=== PATIENT | male | born 1945 | race Hispanic/Latino ===

== ENCOUNTER 2017-07-16 10:41 | Day surgery (SDC) | payer MEDICARE, OTHER ==
[~2017-07-16 10:41] MED LIST: ANCEF/STERILE WATER 2 GM/20 ML 2 GM/20 ML SYRINGE IV NR; NACL 0.9% 1000 ML 1,000 ML IV SCH
[2017-07-16 11:30] LABS: Basophils % (Auto) 1.4 % (0.0-1.8); Eosinophils % (Auto) 2.4 % (0.0-4.3); Hematocrit 36.5 % (35.5-45.6); Hemoglobin 12.4 gm/dl (11.8-15.2); Mean Corpuscular HGB Conc 34 % (32-34); Mean Corpuscular Hemoglobin 33 pg (28-32); Mean Corpuscular Volume 96 fl (84-94); Red Cell Distribution Width 16.7 % (13.2-15.2); White Blood Count 6.4 K/mm3 (4.5-11.0)
[2017-07-16 11:33] LABS: Platelet Count 81 K/mm3 (140-440)
[2017-07-16 11:46] LABS: BUN/Creatinine Ratio 5.33; Calcium 9.5 mg/dL (8.4-10.2); Chloride 95.2 mmol/L (98-107); INR 1.83 (0.87-1.13); Partial Thromboplastin Time 31.5 Sec. (24.2-36.6)
[2017-07-16] MEDS ORDERED: HEPARIN/NS 5000 UNIT/500ML(CATH LAB) 1,000 ML IR ONE (14:25)
[2017-07-16] MEDS ORDERED: HEPARIN 10,000 UNITS/10 ML ONE (14:25)
[2017-07-16] MEDS ORDERED: XYLOCAINE 2% INFILTRATI ONE (14:25)
[2017-07-16] MEDS ORDERED: SUBLIMAZE ONE (15:03)
[2017-07-16] MEDS ORDERED: VERSED ONE (15:03)
[2017-07-16] MEDS ORDERED: ANCEF/STERILE WATER 2 GM/20 ML 2 GM/20 ML SYRINGE IV ONE (15:04)
[2017-07-16] MEDS ORDERED: NACL 0.9% 250ML 250 ML ONE (15:04)
--- NOTE | 2017-07-16 16:49 | Operative Report ---
Operative Report Operative Report: Date of procedure: 07/16/2017 Pre-operative diagnosis: Mechanical complication hemodialysis access fistula right arm Post-operative diagnosis: Same Procedure name(s): AV fistulogram with angioplasty peripheral dialysis circuit right upper extremity, percutaneous angioplasty right brachiocephalic and superior vena cava vein of the central dialysis circulation Surgeon: Travis Silverman MD Business Trainer: None Anesthesia: Moderate sedation EBL: Minimal Specimen(s): None Complications: None Findings: Transposed basilic AV fistula with large pseudoaneurysm in the arterial and venous cannulation sites stenosis of the fistula just beyond the venous cannulation site at the transition zone to the brachial vein upper arm, and the central venous circulation at the confluence of the right subclavian, right internal jugular, brachiocephalic, and SVC. Procedure: Patient in the supine position after adequate levels of conscious sedation was obtained the right arm was extended the entire extremity was prepped and draped using standard sterile technique. The AV fistula was then accessed using micropuncture technique and a microcatheter was advanced in an antegrade fashion towards the venous outflow. Contrast was injected which delineated the AV fistula showing it to be stenotic and several areas with a large contiguous pseudoaneurysm involving both the arterial and venous access sites. Just proximal in the arm to the venous access site there was a significant 70-80% stenosis. The fistula was of normal caliber above this area but somewhat irregular for an additional 3-4 cm .There was another high- grade stenotic lesion clearly 70% at the transition zone to the brachial vein. In addition there appeared to be some collateral formation suggesting a more central stenosis. Was confirmed by passing a guidewire and a vertebral catheter and injecting contrast in the subclavian vein. This point I made the decision to intervene and heparinized the patient. I then upsized to a 7 Maltese introducer and advanced a guidewire into the central circulation. A 12 x 4 high pressure angioplasty balloon was then brought across the lesion central and ultimately insufflated to 16 sh[place]ana. This resulted in an improvement of the stenotic lesion. Both of the lesions within the peripheral dialysis circuit were treated with 8 x 4 balloon. Reflux examination did not reveal inflow stenosis. At this point the procedure was terminated by removal of the balloon and guidewire. The sheath was removed through a pursestring chromic suture . Patient tolerated the procedure well and was returned to the recovery area in stable condition. At this point I had elected not to use a cutting balloon or a drug coated balloon because based on his anatomy was not clear that this access would remain patent for the long-term. Surgical options include revision/reduction of the pseudoaneurysmal areas but this requires a permacath, creation of a new access preferably fistula in his contralateral arm and letting both run until the new fistula is mature and the old fistula can be abandoned, converting the existing fistula to an AV graft with early access capabilities, or continuing to use the current access and planning repeat angioplasty. Patient will benefit from vein sizing in his contralateral arm before I make my final recommendation.
--- NOTE | 2017-07-16 16:54 | Short Stay Summary ---
Short Stay Documentation Date of service: 07/16/17 Narrative H&P: Admitted to the [facility] for outpatient fissure gram and possible angioplasty secondary to mechanical complications of his hemodialysis fistula - History H&P: obtained from office - Allergies and Medications Current Medications: Allergies No Known Allergies Allergy (Unverified 07/16/17 10:41) Home Medications Medication Instructions Recorded Confirmed Last Taken Type Allopurinol [Zyloprim] 100 mg PO DAILY 07/16/17 07/16/17 07/15/17 History 100mg Amiodarone [Cordarone 200 MG TAB] 200 mg PO DAILY 07/16/17 07/16/17 07/15/17 History 200mg Docusate Sodium [Stool Softener] 1 tab PO Q48H 07/16/17 07/16/17 07/09/17 History 1 cap Metoprolol [Lopressor TAB] 25 mg PO BID 07/16/17 07/16/17 07/15/17 History 25mg Pravastatin Sodium [Pravastatin] 40 mg PO HS 07/16/17 07/16/17 07/15/17 History 40mg Saxagliptin HCl [Onglyza] 2.5 mg PO DAILY 07/16/17 07/16/17 07/15/17 History 2.5mg Sucroferric Oxyhydroxide [Velphoro] 3 tab PO TIDWM 07/16/17 07/16/17 07/15/17 History 3 tab Vit B Cplx #11/FA/C/Biot/Zn Ox 1 tab PO DAILY 07/16/17 07/16/17 07/15/17 History [Dialyvite with Zinc Tablet] 1 tab Warfarin [Coumadin] 5 mg PO DAILY 07/16/17 07/16/17 07/15/17 History 5mg Active Medications Cefazolin Sodium (Ancef/Sterile Water 2 Gm/20 Ml) 2 gm in 20 mls @ 80 mls/hr IV PREOP NR PRN Reason: Protocol Stop: 07/16/17 23:59 Sodium Chloride (Nacl 0.9% 1000 Ml) 1,000 mls @ 42 mls/hr IV DIRECT MADDY - Brief post op/procedure progress note Date of procedure: 07/16/17 Pre-op diagnosis: mechanial complicatons avf Post-op diagnosis: same Procedure: Date of procedure: 07/16/2017 Pre-operative diagnosis: Mechanical complication hemodialysis access fistula right arm Post-operative diagnosis: Same Procedure name(s): AV fistulogram with angioplasty peripheral dialysis circuit right upper extremity, percutaneous angioplasty right brachiocephalic and superior vena cava vein of the central dialysis circulation Surgeon: Travis Silverman MD Filling Machine Tender: None Anesthesia: Moderate sedation EBL: Minimal Specimen(s): None Complications: None Findings: Transposed basilic AV fistula with large pseudoaneurysm in the arterial and venous cannulation sites stenosis of the fistula just beyond the venous cannulation site at the transition zone to the brachial vein upper arm, and the central venous circulation at the confluence of the right subclavian, right internal jugular, brachiocephalic, and SVC. Procedure: Patient in the supine position after adequate levels of conscious sedation was obtained the right arm was extended the entire extremity was prepped and draped using standard sterile technique. The AV fistula was then accessed using micropuncture technique and a microcatheter was advanced in an antegrade fashion towards the venous outflow. Contrast was injected which delineated the AV fistula showing it to be stenotic and several areas with a large contiguous pseudoaneurysm involving both the arterial and venous access sites. Just proximal in the arm to the venous access site there was a significant 70-80% stenosis. The fistula was of normal caliber above this area but somewhat irregular for an additional 3-4 cm .There was another high- grade stenotic lesion clearly 70% at the transition zone to the brachial vein. In addition there appeared to be some collateral formation suggesting a more central stenosis. Was confirmed by passing a guidewire and a vertebral catheter and injecting contrast in the subclavian vein. This point I made the decision to intervene and heparinized the patient. I then upsized to a 7 Japanese introducer and advanced a guidewire into the central circulation. A 12 x 4 high pressure angioplasty balloon was then brought across the lesion central and ultimately insufflated to 16 [place]. This resulted in an improvement of the stenotic lesion. Both of the lesions within the peripheral dialysis circuit were treated with 8 x 4 balloon. Reflux examination did not reveal inflow stenosis. At this point the procedure was terminated by removal of the balloon and guidewire. The sheath was removed through a pursestring chromic suture . Patient tolerated the procedure well and was returned to the recovery area in stable condition. At this point I had elected not to use a cutting balloon or a drug coated balloon because based on his anatomy was not clear that this access would remain patent for the long-term. Surgical options include revision/reduction of the pseudoaneurysmal areas but this requires a permacath, creation of a new access preferably fistula in his contralateral arm and letting both run until the new fistula is mature and the old fistula can be abandoned, converting the existing fistula to an AV graft with early access capabilities, or continuing to use the current access and planning repeat angioplasty. Patient will benefit from vein sizing in his contralateral arm before I make my final recommendation. Anesthesia: other (moderate sedation) Condition: stable - Disposition Condition at discharge: Stable Disposition: DC-01 TO HOME OR SELFCARE - Discharge Diagnoses (1) Mechanical breakdown of surgically created arteriovenous fistula Status: Acute Qualifiers: Encounter type: initial encounter Qualified Code(s): T82.510A - Breakdown ( mechanical) of surgically created arteriovenous fistula, initial encounter (2) Chronic kidney disease requiring chronic dialysis Status: Chronic Short Stay Discharge Plan Activity: advance as tolerated Weight Bearing Status: Weight Bear as Tolerated Diet: renal Wound: keep clean and dry Special Instructions: no heavy lifting Follow up with: TRAVIS SILVERMAN MD [Staff Physician] - 7 Days Forms: AVG Arteriogram D/CInstruction
[2017-07-16 17:19] VITALS: BP 153/87
== END 2017-07-16 17:30 | disposition home or self-care (01) ==
LOC: CATHLABREC 10:41
PROVIDERS: ATTEND Surgery Vascular Surgery
DX: T82.590A Other mechanical complication of surgically created arteriovenous fistula, initial encounter (principal); E11.22 Type 2 diabetes mellitus with diabetic chronic kidney disease; N18.6 End stage renal disease; M19.90 Unspecified osteoarthritis, unspecified site; E13.40 Other specified diabetes mellitus with diabetic neuropathy, unspecified; Z99.2 Dependence on renal dialysis; Z95.1 Presence of aortocoronary bypass graft; Z98.890 Other specified postprocedural states; Z87.891 Personal history of nicotine dependence; Z79.82 Long term (current) use of aspirin; Z79.899 Other long term (current) drug therapy; Z83.3 Family history of diabetes mellitus; Y83.2 Surgical operation with anastomosis, bypass or graft as the cause of abnormal reaction of the patient, or of later complication, without mention of misadventure at the time of the procedure
CPT/HCPCS: 36415; 36902; 80048; 85025; 85610; 85730; C1725; C1751; C1894; J0690; J1644; J2250; J3010; J7050; Q9967

== ENCOUNTER 2017-08-06 07:35 | Day surgery (SDC) | payer MEDICARE ==
[~2017-08-06 07:35] MED LIST changes: +HEPARIN 10,000 UNITS/10 ML ONE; +MARCAINE 0.5% INFILTRATI ONE; +NACL 0.9% 500 ML 500 ML ONE; +PROTAMINE SULFATE ONE; +SODIUM BICARBONATE ONE; +XYLOCAINE 1%/ EPI 1:100,000 INFILTRATI ONE
--- NOTE | 2017-08-06 08:48 | Anesthesia Consultation ---
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
--- NOTE | 2017-08-06 08:52 | Anesthesia Day of Surgery ---
Anesthesia Day of Surgery - Day of Surgery Patient Examined: Yes Patient H&P Reviewed: Yes Patient is NPO: Yes Beta Blockers: No (held per patient, "BP was too low" )
[2017-08-06 09:36] LABS: Basophils % (Auto) 1.2 % (0.0-1.8); Eosinophils % (Auto) 1.7 % (0.0-4.3); Hematocrit 36.2 % (35.5-45.6); Hemoglobin 12.7 gm/dl (11.8-15.2); Mean Corpuscular HGB Conc 35 % (32-34); Mean Corpuscular Hemoglobin 34 pg (28-32); Mean Corpuscular Volume 97 fl (84-94); Red Blood Count 3.73 M/mm3 (3.65-5.03); Red Cell Distribution Width 15.4 % (13.2-15.2); White Blood Count 6.5 K/mm3 (4.5-11.0)
[2017-08-06 09:38] LABS: Platelet Count 78 K/mm3 (140-440)
[2017-08-06] MEDS ORDERED: XYLOCAINE MPF 2% ONE (09:45)
[2017-08-06] MEDS ORDERED: SUBLIMAZE ONE (09:45)
[2017-08-06] MEDS ORDERED: DIPRIVAN 10 MG/ML IV ONE ×4 (09:45→12:04)
[2017-08-06] MEDS ORDERED: VERSED IV ONE (10:00)
[2017-08-06 10:08] LABS: Calcium 9.2 mg/dL (8.4-10.2); Chloride 95.5 mmol/L (98-107)
[2017-08-06] MEDS ORDERED: VERSED ONE (10:45)
[2017-08-06] MEDS ORDERED: ePHEDrine SULFATE ONE (10:52)
[2017-08-06] MEDS ORDERED: HEPARIN 10,000 UNITS/10 ML 2,000 UNIT in NACL 0.9% 500 ML 500 ML IR ONE (11:08)
[2017-08-06] MEDS ORDERED: AMIDATE IV ONE (11:10)
[2017-08-06] MEDS ORDERED: MARCAINE 0.5% INFILTRATI ONE (11:21)
[2017-08-06] MEDS ORDERED: SODIUM BICARBONATE IV ONE (11:21)
[2017-08-06] MEDS ORDERED: NACL 0.9% IR ONE (11:22)
[2017-08-06] MEDS ORDERED: XYLOCAINE 1%/ EPI 1:100,000 INFILTRATI ONE ×2 (11:22)
--- NOTE | 2017-08-06 12:51 | Operative Report ---
Operative Report Operative Report: Date of procedure: 08/06/2017 Pre-operative diagnosis: Mechanical malfunction of AV fistula, end-stage renal disease on hemodialysis Post-operative diagnosis: Same Procedure name(s): Creation of left arm brachial artery to basilic vein fistula via direct anastomosis Surgeon: Travis Silverman MD Right Of Way Appraiser: None Anesthesia: Local Mac EBL: Minimal Specimen(s): None Complications: None Findings: Good-quality basilic vein, large median cubital vein with deep line decorator, excellent thrill and bruit post anastomosis and new fistula, palpable radial pulse Procedure: Patient in the supine position with the left arm extended the entire extremity was then prepped and draped using standard sterile technique. Duplex probe was used to identify the basilic vein and the median cubital vein and its relationship to the brachial artery. These vessels were marked. A longitudinal incision was then made just below the antecubital fossa through anesthetized skin centered over the median cubital vein and brachial artery. The incision was deepened through the subcutaneous tissue and then the median cubital vein was mobilized for several centimeter. The deep perforating branch connecting the antecubital with the brachial and antebrachial vein was mobilized and divided distally. It was hydrodilated and felt to be an acceptable candidate for access. The incision was deepened and the fascia divided and the brachial artery was then mobilized for several centimeters and encircled using vessel loops. The vessel was then occluded and a longitudinal arteriotomy was then made. The vein was spatulated and an end-to-side anastomosis was then created between the vein and the artery using 6-0 Prolene suture in running technique. Prior to the completion of the suture line antegrade and retrograde flushing was performed. The suture line was then completed and flow was established retrograde into the fistula. Subsequently the outflow arterial track was through occluded and antegrade flow was established initially into the vein followed by release of the forearm. Patient tolerated declamping without difficulty. An excellent thrill and bruit was noted in the fistula. Hemostasis was adequate. The incision was then blocked using Marcaine 0.5% plain and then close using 3-0 Vicryl subcutaneous 4 -0 Monocryl subcuticular the skin was sealed with Dermabond. A good radial pulse was felt with an excellent thrill and bruit in the fistula. The patient was then returned to the supine position and fluffs to the recovery area in stable condition having tolerated the procedure well. Sponge and needle counts were correct.
--- NOTE | 2017-08-06 12:54 | Short Stay Summary ---
Short Stay Documentation Date of service: 08/06/17 Narrative H&P: Patient admitted to the operating room for outpatient creation of a left brachial basilic fistula - History H&P: obtained from office - Allergies and Medications Current Medications: Allergies No Known Allergies Allergy (Verified 08/01/17 16:09) Home Medications Medication Instructions Recorded Confirmed Last Taken Type Allopurinol [Zyloprim] 100 mg PO DAILY 07/16/17 08/01/17 08/05/17 History Amiodarone [Cordarone 200 MG TAB] 200 mg PO DAILY 07/16/17 08/01/17 08/05/17 History B Complex 11/Folic/C/Biot/Zinc 1 tab PO DAILY 07/16/17 08/01/17 08/05/17 History [Dialyvite with Zinc Tablet] Docusate Sodium [Stool Softener] 1 tab PO Q48H 07/16/17 08/01/17 08/05/17 History Metoprolol [Lopressor TAB] 12.5 mg PO BID 07/16/17 08/06/17 08/04/17 History Pravastatin Sodium [Pravastatin] 40 mg PO HS 07/16/17 08/01/17 08/05/17 History Saxagliptin HCl [Onglyza] 2.5 mg PO DAILY 07/16/17 08/01/17 08/05/17 History Sucroferric Oxyhydroxide [Velphoro] 3 tab PO TIDWM 07/16/17 08/01/17 08/05/17 History Warfarin [Coumadin] 5 mg PO DAILY 07/16/17 08/01/17 08/05/17 History Active Medications Cefazolin Sodium (Ancef/Sterile Water 2 Gm/20 Ml) 2 gm in 20 mls @ 80 mls/hr IV PREOP NR PRN Reason: Protocol Stop: 08/06/17 23:59 Sodium Chloride (Nacl 0.9% 1000 Ml) 1,000 mls @ 42 mls/hr IV DIRECT MADDY Last Admin: 08/06/17 09:20 Dose: 42 mls/hr - Brief post op/procedure progress note Date of procedure: 08/06/17 Procedure: Pre-operative diagnosis: Mechanical malfunction of AV fistula, end-stage renal disease on hemodialysis Post-operative diagnosis: Same Procedure name(s): Creation of left arm brachial artery to basilic vein fistula via direct anastomosis Surgeon: Travis Silverman MD Vehicle Body Sander: None Anesthesia: Local Mac EBL: Minimal Specimen(s): None Complications: None Findings: Good-quality basilic vein, large median cubital vein with deep train reservation clerk, excellent thrill and bruit post anastomosis and new fistula, palpable radial pulse Procedure: Patient in the supine position with the left arm extended the entire extremity was then prepped and draped using standard sterile technique. Duplex probe was used to identify the basilic vein and the median cubital vein and its relationship to the brachial artery. These vessels were marked. A longitudinal incision was then made just below the antecubital fossa through anesthetized skin centered over the median cubital vein and brachial artery. The incision was deepened through the subcutaneous tissue and then the median cubital vein was mobilized for several centimeter. The deep perforating branch connecting the antecubital with the brachial and antebrachial vein was mobilized and divided distally. It was hydrodilated and felt to be an acceptable candidate for access. The incision was deepened and the fascia divided and the brachial artery was then mobilized for several centimeters and encircled using vessel loops. The vessel was then occluded and a longitudinal arteriotomy was then made. The vein was spatulated and an end-to-side anastomosis was then created between the vein and the artery using 6-0 Prolene suture in running technique. Prior to the completion of the suture line antegrade and retrograde flushing was performed. The suture line was then completed and flow was established retrograde into the fistula. Subsequently the outflow arterial track was through occluded and antegrade flow was established initially into the vein followed by release of the forearm. Patient tolerated declamping without difficulty. An excellent thrill and bruit was noted in the fistula. Hemostasis was adequate. The incision was then blocked using Marcaine 0.5% plain and then close using 3-0 Vicryl subcutaneous 4 -0 Monocryl subcuticular the skin was sealed with Dermabond. A good radial pulse was felt with an excellent thrill and bruit in the fistula. The patient was then returned to the supine position and fluffs to the recovery area in stable condition having tolerated the procedure well. Sponge and needle counts were correct. - Hospital course Hospital course: Benign - Disposition Condition at discharge: Stable Disposition: DC- TO HOME OR SELFCARE - Discharge Diagnoses (1) Mechanical breakdown of surgically created arteriovenous fistula Status: Acute Qualifiers: Encounter type: initial encounter Qualified Code(s): T82.510A - Breakdown ( mechanical) of surgically created arteriovenous fistula, initial encounter (2) Chronic kidney disease requiring chronic dialysis Status: Chronic Short Stay Discharge Plan Activity: advance as tolerated Weight Bearing Status: Weight Bear as Tolerated Diet: renal Wound: open to air Special Instructions: no heavy lifting Follow up with: RENATE BUSH MD [Primary Care Provider] - 7 Days TRAVIS SILVERMAN MD [Staff Physician] - 14 Days Prescriptions: HYDROcodone/APAP 7.5-325 [[place] 7.5/325] 1 each PO Q6HR PRN #40 tablet PRN Reason: Pain
[2017-08-06] MEDS ORDERED: NORMODYNE IV ONE (14:00)
[2017-08-06 18:37] VITALS: BP 112/73
== END 2017-08-06 14:37 | disposition home or self-care (01) ==
LOC: OR 07:35
PROVIDERS: ATTEND Surgery Vascular Surgery
DX: T82.590A Other mechanical complication of surgically created arteriovenous fistula, initial encounter (principal); Y83.2 Surgical operation with anastomosis, bypass or graft as the cause of abnormal reaction of the patient, or of later complication, without mention of misadventure at the time of the procedure; I10 Essential (primary) hypertension; I25.10 Atherosclerotic heart disease of native coronary artery without angina pectoris; E11.22 Type 2 diabetes mellitus with diabetic chronic kidney disease; I12.0 Hypertensive chronic kidney disease with stage 5 chronic kidney disease or end stage renal disease; N18.6 End stage renal disease; Z85.828 Personal history of other malignant neoplasm of skin; Z95.1 Presence of aortocoronary bypass graft; Z95.2 Presence of prosthetic heart valve
CPT/HCPCS: 36415; 36819; 80048; 82962; 85025; J0690; J1644; J2250; J2704; J3010; J7030; J7040; J2720

== ENCOUNTER 2017-10-02 07:18 | Day surgery (SDC) | payer MEDICARE ==
[~2017-10-02 07:18] MED LIST changes: -HEPARIN 10,000 UNITS/10 ML ONE; -MARCAINE 0.5% INFILTRATI ONE; -NACL 0.9% 500 ML 500 ML ONE; -PROTAMINE SULFATE ONE; -SODIUM BICARBONATE ONE; -XYLOCAINE 1%/ EPI 1:100,000 INFILTRATI ONE
[2017-10-02] MEDS ORDERED: NACL 0.9% 500 ML 500 ML ONE (08:11)
[2017-10-02] MEDS ORDERED: MARCAINE 0.5% 30 ML INFILTRATI ONE (08:11)
[2017-10-02] MEDS ORDERED: PROTAMINE SULFATE ONE (08:11)
[2017-10-02] MEDS ORDERED: HEPARIN 10,000 UNITS/10 ML ONE (08:11)
[2017-10-02 09:19] LABS: Eosinophils % (Auto) 2.1 % (0.0-4.3); Hematocrit 36.2 % (35.5-45.6); Hemoglobin 12.4 gm/dl (11.8-15.2); Mean Corpuscular HGB Conc 34 % (32-34); Mean Corpuscular Hemoglobin 34 pg (28-32); Mean Corpuscular Volume 99 fl (84-94); Red Blood Count 3.67 M/mm3 (3.65-5.03); Red Cell Distribution Width 14.9 % (13.2-15.2); White Blood Count 6.2 K/mm3 (4.5-11.0)
--- NOTE | 2017-10-02 09:23 | Anesthesia Day of Surgery ---
Anesthesia Day of Surgery - Day of Surgery Patient Examined: Yes Patient H&P Reviewed: Yes Patient is NPO: Yes
--- NOTE | 2017-10-02 09:23 | Anesthesia Consultation ---
Anesthesia Consult and Med Hx Date of service: 10/02/17 - Airway Mallampati Class: Class II Intubation Access Assessment: Probably Good - Pre-Operative Health Status ASA Pre-Surgery Classification: ASA3 Proposed Anesthetic Plan: General - Pulmonary Hx Smoking: Yes Hx Sleep Apnea: Yes - Cardiovascular System Hx Hypertension: Yes Hx Coronary Artery Disease: Yes Hx Heart Attack/AMI: Yes (2012) Hx Cardia Arrhythmia: Yes (atrial fibrilation) Hx Valvular Heart Disease: Yes (Aortic valve replacement 04/2017) Hx Peripheral Vascular Disease: Yes - Central Nervous System Hx Back Pain: Yes Hx Psychiatric Problems: No - Endocrine Hx Renal Disease: Yes Hx End Stage Renal Disease: Yes Hx Non-Insulin Dependent Diabetes: Yes - Hematic Hx Anemia: Yes - Other Systems Hx Cancer: Yes (SKIN)
[2017-10-02 09:27] LABS: Platelet Count 86 K/mm3 (140-440)
[2017-10-02 09:35] LABS: Calcium 9.2 mg/dL (8.4-10.2); Chloride 94.2 mmol/L (98-107); Potassium 5.7 mmol/L (3.6-5.0)
[2017-10-02 09:41] LABS: INR 1.52 (0.87-1.13)
[2017-10-02] MEDS ORDERED: VERSED IV NR (10:00)
[2017-10-02] MEDS ORDERED: PEPCID IV NR (10:00)
[2017-10-02] MEDS ORDERED: DILAUDID IV SCH (10:00)
[2017-10-02] MEDS ORDERED: NEO SYNEPHRINE/NS Syringe(OR USE) IV ONE (10:00)
[2017-10-02] MEDS: DILAUDID IV NR ×2 (10:15→16:14)
[2017-10-02] MEDS ORDERED: SUBLIMAZE ONE (11:50)
[2017-10-02] MEDS ORDERED: ZOFRAN ONE (11:50)
[2017-10-02] MEDS ORDERED: DIPRIVAN 10 MG/ML IV ONE (11:50)
[2017-10-02] MEDS ORDERED: XYLOCAINE MPF 2% ONE (11:50)
[2017-10-02] MEDS ORDERED: ePHEDrine SULFATE ONE (12:35)
[2017-10-02] MEDS ORDERED: MARCAINE 0.5% INFILTRATI ONE ×2 (12:55)
[2017-10-02] MEDS ORDERED: HEPARIN 10,000 UNITS/10 ML 2,000 UNIT in NACL 0.9% 500 ML 500 ML IR ONE (12:55)
[2017-10-02] MEDS ORDERED: NACL 0.9% IR ONE (12:55)
[2017-10-02] MEDS ORDERED: DDAVP ONE (13:49)
[2017-10-02] MEDS ORDERED: DDAVP 20 MCG in NACL 0.9% 50 ML IV ONE (14:00)
--- NOTE | 2017-10-02 15:34 | Short Stay Summary ---
Short Stay Documentation Date of service: 10/02/17 Narrative H&P: Admitted to the operative suite for outpatient revision of a brachial basilic AV fistula left arm - History H&P: obtained from office - Allergies and Medications Current Medications: Allergies No Known Allergies Allergy (Verified 09/29/17 08:31) Home Medications Medication Instructions Recorded Confirmed Last Taken Type Allopurinol [Zyloprim] 100 mg PO DAILY 07/16/17 09/29/17 10/01/17 History Amiodarone [Cordarone 200 MG TAB] 200 mg PO DAILY 07/16/17 09/29/17 10/01/17 History B Complex 11/Folic/C/Biot/Zinc 1 tab PO DAILY 07/16/17 09/29/17 10/01/17 History [Dialyvite with Zinc Tablet] Docusate Sodium [Stool Softener] 1 tab PO Q48H 07/16/17 09/29/17 10/01/17 History Pravastatin Sodium [Pravastatin] 40 mg PO HS 07/16/17 09/29/17 10/01/17 History Saxagliptin HCl [Onglyza] 2.5 mg PO DAILY 07/16/17 09/29/17 10/01/17 History Sucroferric Oxyhydroxide [Velphoro] 3 tab PO TIDWM 07/16/17 09/29/17 10/01/17 History Warfarin [Coumadin] 5 mg PO DAILY 07/16/17 10/02/17 09/29/17 History HYDROcodone/APAP 7.5-325 [[place] 1 each PO Q6HR PRN #40 tablet 08/06/17 10/02/17 09/30/17 Rx 7.5/325] Active Medications Famotidine (Pepcid) 20 mg IV PREOP NR Stop: 10/02/17 23:59 Last Admin: 10/02/17 09:42 Dose: 20 mg Hydromorphone HCl (Dilaudid) 0.5 mg IV PREOP NR Stop: 10/02/17 23:59 Last Admin: 10/02/17 10:15 Dose: 0.5 mg Cefazolin Sodium (Ancef/Sterile Water 2 Gm/20 Ml) 2 gm in 20 mls @ 80 mls/hr IV PREOP NR PRN Reason: Protocol Stop: 10/02/17 21:00 Sodium Chloride (Nacl 0.9% 1000 Ml) 1,000 mls @ 42 mls/hr IV DIRECT MADDY Last Admin: 10/02/17 09:15 Dose: 42 mls/hr Midazolam HCl (Versed) 2 mg IV PREOP NR Stop: 10/02/17 23:59 Last Admin: 10/02/17 09:42 Dose: 2 mg - Brief post op/procedure progress note Date of procedure: 10/02/17 Procedure: Date of procedure: 10/02/2017 Pre-operative diagnosis: Mechanical complication AV fistula left arm, end-stage renal disease on dialysis Post-operative diagnosis: Same Procedure name(s): [ReVision of AV fistula left arm Surgeon: Travis Dwyer MD Integrated Marketing Specialist: None Anesthesia: General EBL: Minimal Specimen(s): None Complications: None Findings: Excellent size AV fistula. Good thrill and bruit at procedure termination Procedure: Patient in the supine position with the left arm extended the entire extremity is prepped and draped using sterile technique. The AV fistula was easily palpable at the antecubital fossa. I made a longitudinal incision overlying the basilic vein just above the antecubital fossa and extended sequentially to the axilla. The incision was deepened until the basilic vein was identified. Care was taken to identify and preserve the muscular cutaneous nerve throughout its entire length. Once the vein was mobilized to the level of the axilla it was encircled using vessel loops it was retracted upward and freed from its vascular base. Side branches were ligated using 3-0 silk ties. The vein was then divided after vascular control was obtained using the beveled technique. I then removed the upper portion of the vessel from underneath the nerves flushed and dilated it with saline. A curved Grace-Wick tunneling device was then used to create the subdermal tunnel. The fistula was then attached to the tunneler and pulled back into the antecubital fossa portion of the incision in a non-rotational fashion. The vessel was then reanastomosed end to end using 6-0 Prolene suture. Prior to completion of the suture line antegrade and retrograde flushing was performed. The suture line was then completed and flow was released back to the fistula. The fistula developed an excellent thrill and bruit. Hemostasis was excellent. The incision was then blocked with a cane. The incision was then closed using 3-0 Vicryl subcutaneous 4-0 Monocryl subcuticular. The skin was then sealed using Dermabond equivalent. Patient was then extubated returned to the recovery room in stable condition having tolerated the procedure well. Sponge and needle counts were correct. - Disposition Condition at discharge: Stable Disposition: DC-01 TO HOME OR SELFCARE - Discharge Diagnoses (1) Chronic kidney disease requiring chronic dialysis Status: Chronic (2) Mechanical breakdown of surgically created arteriovenous fistula Status: Chronic Qualifiers: Encounter type: subsequent encounter Qualified Code(s): T82.510D - Breakdown (mechanical) of surgically created arteriovenous fistula, subsequent encounter Short Stay Discharge Plan Activity: advance as tolerated Weight Bearing Status: Full Weight Bearing Diet: diabetic, renal Wound: keep clean and dry Special Instructions: no heavy lifting Follow up with: RENATE BUSH MD [Primary Care Provider] - 7 Days TRAVIS DWYER MD [Staff Physician] - 14 Days ILIANA STOKES MD [Staff Physician] - 7 Days CHINMAY SNOWDEN MD [Staff Physician] - 7 Days Prescriptions: HYDROcodone/APAP 7.5-325 [[place] 7.5-325 mg TAB] 1 each PO Q6HR PRN #30 tablet PRN Reason: Pain
[2017-10-02 16:22] VITALS: BP 147/84
--- NOTE | 2017-10-02 17:05 | Post Anesthesia Evaluation ---
- Post Anesthesia Evaluation Patient Participated: Yes Airway Patent: Yes Stable Respiratory Function: Yes Nausea/Vomiting: No Temp > 96.8F: Yes Pain Manageable: Yes Adequeate Hydration: Yes Anesthesia Complications: No
== END 2017-10-02 07:19 | disposition home or self-care (01) ==
LOC: OR 07:18
PROVIDERS: ATTEND Surgery Vascular Surgery
DX: T82.510A Breakdown (mechanical) of surgically created arteriovenous fistula, initial encounter (principal); E11.22 Type 2 diabetes mellitus with diabetic chronic kidney disease; I13.2 Hypertensive heart and chronic kidney disease with heart failure and with stage 5 chronic kidney disease, or end stage renal disease; N18.6 End stage renal disease; I50.9 Heart failure, unspecified; I25.2 Old myocardial infarction; I48.0 Paroxysmal atrial fibrillation; I70.213 Atherosclerosis of native arteries of extremities with intermittent claudication, bilateral legs; I25.10 Atherosclerotic heart disease of native coronary artery without angina pectoris; E11.40 Type 2 diabetes mellitus with diabetic neuropathy, unspecified; E11.51 Type 2 diabetes mellitus with diabetic peripheral angiopathy without gangrene; Z79.82 Long term (current) use of aspirin; Z79.899 Other long term (current) drug therapy; Z79.01 Long term (current) use of anticoagulants; Z79.84 Long term (current) use of oral hypoglycemic drugs; Z95.1 Presence of aortocoronary bypass graft; Z85.828 Personal history of other malignant neoplasm of skin; Z95.2 Presence of prosthetic heart valve; Y83.1 Surgical operation with implant of artificial internal device as the cause of abnormal reaction of the patient, or of later complication, without mention of misadventure at the time of the procedure
CPT/HCPCS: 36415; 36832; 80048; 82962; 84132; 85025; 85610; J0690; J1170; J1644; J2250; J2370; J2405; J2597; J2704; J3010; J7030; J7040; J2720

== ENCOUNTER 2017-12-11 05:46 | Day surgery (SDC) | payer MEDICARE ==
[2017-12-11] MEDS ORDERED: PEPCID PO NR (06:00)
[2017-12-11] MEDS ORDERED: ANCEF/STERILE WATER 2 GM/20 ML 2 GM/20 ML SYRINGE IV NR (06:00)
[2017-12-11] MEDS ORDERED: NACL 0.9% 1000 ML 1,000 ML IV SCH (06:00)
[2017-12-11] MEDS ORDERED: NACL BACTERIOSTATIC INFILTRATI ONE (06:50)
[2017-12-11 07:10] LABS: Basophils # (Auto) 0.1 K/mm3 (0.0-0.1); Eosinophils # (Auto) 0.2 K/mm3 (0.0-0.4); Eosinophils % (Auto) 3.6 % (0.0-4.3); Hematocrit 37.6 % (35.5-45.6); Hemoglobin 12.9 gm/dl (11.8-15.2); Lymphocytes # (Auto) 1.2 K/mm3 (1.2-5.4); Lymphocytes % (Auto) 18.6 % (13.4-35.0); Mean Corpuscular HGB Conc 34 % (32-34); Mean Corpuscular Hemoglobin 32 pg (28-32); Mean Corpuscular Volume 93 fl (84-94); Monocytes # (Auto) 0.5 K/mm3 (0.0-0.8); Monocytes % (Auto) 8.1 % (0.0-7.3); Red Blood Count 4.04 M/mm3 (3.65-5.03); Red Cell Distribution Width 14.7 % (13.2-15.2)
[2017-12-11 07:16] LABS: Calcium 9.2 mg/dL (8.4-10.2)
[2017-12-11] MEDS ORDERED: XYLOCAINE 1% 20 mL ONE (07:18)
[2017-12-11] MEDS ORDERED: MARCAINE 0.5% INFILTRATI ONE ×4 (07:18→12:06)
[2017-12-11 07:19] LABS: Platelet Count 86 K/mm3 (140-440)
[2017-12-11] MEDS ORDERED: HEPARIN 10,000 UNITS/10 ML ONE (07:19)
[2017-12-11] MEDS ORDERED: NACL 0.9% 500 ML 500 ML ONE (07:19)
--- NOTE | 2017-12-11 07:36 | Anesthesia Consultation ---
Anesthesia Consult and Med Hx Date of service: 12/11/17 - Airway Anesthetic Teeth Evaluation: Good (#8, 9 missing) ROM Head & Neck: Adequate Mental/Hyoid Distance: Adequate Mallampati Class: Class III Intubation Access Assessment: Possibly Difficult - Pre-Operative Health Status ASA Pre-Surgery Classification: ASA3 Proposed Anesthetic Plan: General - Pulmonary Hx Smoking: Yes Hx Sleep Apnea: Yes - Cardiovascular System Hx Hypertension: Yes Hx Coronary Artery Disease: Yes Hx Heart Attack/AMI: Yes (2012) Hx Cardia Arrhythmia: Yes (atrial fibrilation) Hx Valvular Heart Disease: Yes (Aortic valve replacement 04/2017) Hx Peripheral Vascular Disease: Yes - Central Nervous System Hx Back Pain: Yes Hx Psychiatric Problems: No - Endocrine Hx Renal Disease: Yes Hx End Stage Renal Disease: Yes Hx Non-Insulin Dependent Diabetes: Yes - Hematic Hx Anemia: Yes - Other Systems Hx Cancer: Yes (SKIN)
--- NOTE | 2017-12-11 07:40 | Anesthesia Day of Surgery ---
Anesthesia Day of Surgery - Day of Surgery Patient Examined: Yes Patient H&P Reviewed: Yes Patient is NPO: Yes
[2017-12-11] MEDS ORDERED: DILAUDID ONE (07:59)
[2017-12-11] MEDS ORDERED: DIPRIVAN 10 MG/ML IV ONE (08:00)
[2017-12-11] MEDS ORDERED: XYLOCAINE MPF 2% ONE (08:00)
[2017-12-11] MEDS ORDERED: VERSED IV NR (08:00)
[2017-12-11] MEDS ORDERED: AMIDATE IV ONE (08:14)
[2017-12-11] MEDS ORDERED: NEO SYNEPHRINE/NS Syringe(OR USE) IV ONE (08:38)
[2017-12-11] MEDS ORDERED: XYLOCAINE 1% 20 mL INFILTRATI ONE (08:55)
[2017-12-11] MEDS ORDERED: NACL 0.9% IR ONE (08:55)
[2017-12-11] MEDS ORDERED: HEPARIN 10,000 UNITS/10 ML 2,000 UNIT in NACL 0.9% 500 ML 500 ML IR ONE (08:55)
[2017-12-11] MEDS ORDERED: ZOFRAN ONE (10:03)
--- NOTE | 2017-12-11 10:32 | Post Operative Note ---
Pre-op diagnosis: ulcerated hemodialysis access right arm, ESRD on hemodialysis Post-op diagnosis: same Findings: Large pseudoaneurysmal AV fistula with erosion and ulceration to the midportion of the cannulation site was successfully excised and skin closed. Palpable radial pulse noted. Procedure: Excision of ulcerated hemodialysis access right arm Anesthesia: YOLIS Surgeon: SERAFIN DWYER Estimated blood loss: 50-100ml Pathology: list (ulcerated hemodialysis access fistula) Specimen disposition: to lab Condition: stable Disposition: same day
--- NOTE | 2017-12-11 10:36 | Short Stay Summary ---
Short Stay Documentation Date of service: 12/11/17 Narrative H&P: Admitted to the operating suite for outpatient removal of an ulcerated hemodialysis access in the right arm - History H&P: obtained from office - Allergies and Medications Current Medications: Allergies No Known Allergies Allergy (Verified 12/09/17 15:31) Home Medications Medication Instructions Recorded Confirmed Last Taken Type Allopurinol [Zyloprim] 100 mg PO DAILY 07/16/17 12/09/17 10/01/17 History Amiodarone [Cordarone 200 MG TAB] 200 mg PO DAILY 07/16/17 12/09/17 10/01/17 History B Complex 11/Folic/C/Biot/Zinc 1 tab PO DAILY 07/16/17 12/09/17 10/01/17 History [Dialyvite with Zinc Tablet] Docusate Sodium [Stool Softener] 1 tab PO Q48H 07/16/17 12/09/17 10/01/17 History Pravastatin Sodium [Pravastatin] 40 mg PO HS 07/16/17 12/09/17 10/01/17 History Saxagliptin HCl [Onglyza] 2.5 mg PO DAILY 07/16/17 12/09/17 10/01/17 History Sucroferric Oxyhydroxide [Velphoro] 3 tab PO TIDWM 07/16/17 12/09/17 10/01/17 History Warfarin [Coumadin] 5 mg PO DAILY 07/16/17 12/09/17 09/29/17 History HYDROcodone/APAP 7.5-325 [[place] 1 each PO Q6HR PRN #30 tablet 10/02/17 12/09/17 Unknown Rx 7.5-325 mg TAB] Active Medications Famotidine (Pepcid) 20 mg PO PREOP NR Stop: 12/11/17 21:00 Last Admin: 12/11/17 07:00 Dose: 20 mg Cefazolin Sodium (Ancef/Sterile Water 2 Gm/20 Ml) 2 gm in 20 mls @ 80 mls/hr IV PREOP NR PRN Reason: Protocol Stop: 12/11/17 23:59 Sodium Chloride (Nacl 0.9% 1000 Ml) 1,000 mls @ 42 mls/hr IV DIRECT MADDY Last Admin: 12/11/17 07:15 Dose: 42 mls/hr Midazolam HCl (Versed) 2 mg IV ONCE NR Stop: 12/11/17 21:00 Last Admin: 12/11/17 07:50 Dose: 2 mg - Brief post op/procedure progress note Date of procedure: 12/11/17 Pre-op diagnosis: ulcerated hemodialysis access right arm Post-op diagnosis: same Procedure: Excision of ulcerated hemodialysis access right arm Anesthesia: GETA Findings: Large pseudoaneurysmal access with ulcerated skin successfully excised. 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
--- NOTE | 2017-12-11 11:02 | Post Anesthesia Evaluation ---
- Post Anesthesia Evaluation Patient Participated: Yes Airway Patent: Yes Stable Respiratory Function: Yes Nausea/Vomiting: No Temp > 96.8F: Yes Pain Manageable: Yes Adequeate Hydration: Yes Anesthesia Complications: No Block Receding Appropriately: Not Applicable Patient on Ventilator: No
[2017-12-11] MEDS ORDERED: NORCO 7.5/325 PO SCH (12:00)
[2017-12-11 16:04] VITALS: BP 134/41
--- NOTE | 2017-12-11 16:19 | Operative Report ---
Operative Report Operative Report: Date of procedure:12/11/2017 Pre-operative diagnosis: Ulcerated hemodialysis access right upper arm, end- stage renal disease on dialysis Post-operative diagnosis: Same Procedure name(s): Excision of ulcerated hemodialysis access right upper extremity Surgeon: Travis Silverman MD Bath Tester: None Anesthesia: Gen./LMA EBL: 50-100 mL Specimen(s): Excised fistula with skin ulceration Complications: None Findings: Large pseudoaneurysmal AV fistula right upper extremity with ulceration through the skin skin fixation throughout. Successfully removed. Brachial and oversewn near the anastomosis Procedure: Patient in the supine position after adequate levels of general anesthesia was obtained using an LMA central right upper extremity was extended prepped in sterile technique. I marked an ellipse around the large pseudoaneurysm with ulcerated cannulation surfaces and anesthetized creating a large field block. The elliptical incision was then made excise the damaged skin was lengthened proximally and distally to accommodate the enlargement. Excision was then sharply taken down to the fistula surface and the entire fistula was then mobilized circumferentially. Side branches encountered were ligated. I then excised the remaining of the fistula and the redundant skin by first getting vascular control proximally and distally and then ligating the vessel. The proximal end of the access graft was mobilized to the anastomosis and there was oversewn using Prolene suture. Once the entire fistula was isolated was then amputated and removed from the surgical incision. Hemostasis was adequate. I then blocked the inside incision with Marcaine and then closed the subcutaneous tissue with 3-0 Vicryl running suture. The skin was then reapproximated using 4-0 Monocryl. The incision was then sealed with Dermabond. A soft compression wrap was applied for hemostasis. Patient was then returned to the recovery area in stable condition having tolerated the procedure well. Sponge and needle counts were correct.
== END 2017-12-11 12:05 | disposition home or self-care (01) ==
LOC: OR 05:46
PROVIDERS: ATTEND Surgery Vascular Surgery
DX: T82.898A Other specified complication of vascular prosthetic devices, implants and grafts, initial encounter (principal); I13.2 Hypertensive heart and chronic kidney disease with heart failure and with stage 5 chronic kidney disease, or end stage renal disease; E11.22 Type 2 diabetes mellitus with diabetic chronic kidney disease; N18.6 End stage renal disease; I50.40 Unspecified combined systolic (congestive) and diastolic (congestive) heart failure; E11.51 Type 2 diabetes mellitus with diabetic peripheral angiopathy without gangrene; E11.42 Type 2 diabetes mellitus with diabetic polyneuropathy; M19.90 Unspecified osteoarthritis, unspecified site; Z79.01 Long term (current) use of anticoagulants; Z79.899 Other long term (current) drug therapy; Y83.2 Surgical operation with anastomosis, bypass or graft as the cause of abnormal reaction of the patient, or of later complication, without mention of misadventure at the time of the procedure; Z98.890 Other specified postprocedural states
CPT/HCPCS: 36415; 37607; 80048; 82962; 84132; 85025; 88304; J0690; J1170; J1644; J2250; J2370; J2405; J2704; J7030; J7040

== ENCOUNTER 2019-04-15 11:37 | Day surgery (SDC) | payer MEDICARE ==
[2019-04-15 12:24] LABS: Basophils # (Auto) 0.1 K/mm3 (0.0-0.1); Basophils % (Auto) 1.2 % (0.0-1.8); Eosinophils # (Auto) 0.3 K/mm3 (0.0-0.4); Eosinophils % (Auto) 2.7 % (0.0-4.3); Hematocrit 36.7 % (35.5-45.6); Lymphocytes # (Auto) 1.3 K/mm3 (1.2-5.4); Lymphocytes % (Auto) 14.1 % (13.4-35.0); Mean Corpuscular HGB Conc 36 % (32-34); Mean Corpuscular Volume 94 fl (84-94); Monocytes # (Auto) 0.7 K/mm3 (0.0-0.8); Monocytes % (Auto) 8.1 % (0.0-7.3); Platelet Count 102 K/mm3 (140-440); Red Blood Count 3.92 M/mm3 (3.65-5.03)
[2019-04-15 12:36] LABS: INR 1.19 (0.87-1.13); Partial Thromboplastin Time 30.3 Sec. (24.2-36.6)
[2019-04-15 13:44] LABS: Calcium 9.2 mg/dL (8.4-10.2)
[2019-04-15] MEDS ORDERED: NACL 0.9% 500 ML 0 ML ONE (13:52)
[2019-04-15] MEDS ORDERED: HEPARIN/NS 5000 UNIT/500ML(CATH LAB) 1,500 ML IR ONE (13:52)
[2019-04-15] MEDS ORDERED: XYLOCAINE 2% INFILTRATI ONE (13:52)
[2019-04-15] MEDS ORDERED: ANCEF/STERILE WATER 2 GM/20 ML 2 GM/20 ML SYRINGE IV ONE (13:53)
[2019-04-15] MEDS: SUBLIMAZE ONE ×5 (14:28→16:14)
[2019-04-15] MEDS: VERSED ONE ×5 (14:28→16:13)
[2019-04-15] MEDS: HEPARIN 10,000 UNITS/10 ML ONE ×2 (14:40→15:09)
[2019-04-15] MEDS ORDERED: BENADRYL ONE (14:48)
[2019-04-15] MEDS ORDERED: NORCO 10/325 PO ONE (16:48)
[2019-04-15] MEDS ORDERED: NORCO 5/325 ONE (16:57)
--- NOTE | 2019-04-15 17:02 | Post Operative Note ---
Pre-op diagnosis: pvd with disabling claudication, Left leg, ESRD Post-op diagnosis: same Findings: calcified preocclusive stenosis left common femoral, SFA and occuluded above knee popliteal with two vessel runnoff below the knee. dramatically improved blood flow after successful shockwave angioplasty of the proximal two lesions, Procedure: left femoral-popliteal artery shockwave angioplasty, ultrasound guided access to right common femoral artery Anesthesia: other (moderate [id number]) Surgeon: SERAFIN DWYER Estimated blood loss: minimal Pathology: none Condition: stable Disposition: same day
--- NOTE | 2019-04-15 17:07 | Short Stay Summary ---
Short Stay Documentation Date of service: 04/15/19 - History H&P: obtained from office - Allergies and Medications Current Medications: Allergies No Known Allergies Allergy (Verified 12/09/17 15:31) Home Medications Medication Instructions Recorded Confirmed Last Taken Type Allopurinol [Zyloprim] 100 mg PO DAILY 07/16/17 04/15/19 04/14/19 History B Complex 11/Folic/C/Biot/Zinc 1 tab PO DAILY 07/16/17 04/15/19 04/14/19 History [Dialyvite with Zinc Tablet] Docusate Sodium [Stool Softener] 1 tab PO Q48H 07/16/17 04/15/19 10/01/17 History Saxagliptin HCl [Onglyza] 2.5 mg PO DAILY 07/16/17 04/15/19 04/15/19 History Sucroferric Oxyhydroxide(Nf) 3 tab PO TIDWM 07/16/17 04/15/19 04/14/19 History [Velphoro (Nf)] HYDROcodone/APAP 7.5-325 [[place] 1 each PO Q6HR PRN #30 tablet 12/11/17 04/15/19 04/15/19 04:00 Rx 7.5-325 mg TAB] Midodrine [Proamatine] 5 mg PO TID 04/15/19 04/15/19 04/15/19 09:00 History Active Medications Sodium Chloride (Nacl 0.9% 1000 Ml) 1,000 mls @ 42 mls/hr IV DIRECT MADDY Cefazolin Sodium (Ancef/Sterile Water 2 Gm/20 Ml) 2 gm in 20 mls @ 80 mls/hr IV PREOP NR; Protocol Stop: 04/15/19 23:59 Last Admin: 04/15/19 14:30 Dose: 20 mls Documented by: - Brief post op/procedure progress note Date of procedure: 04/15/19 Procedure: Pre-op diagnosis: pvd with disabling claudication, Left leg, ESRD Post-op diagnosis: same Findings: calcified preocclusive stenosis left common femoral, SFA and occuluded above knee popliteal with two vessel runnoff below the knee. dramatically improved blood flow after successful shockwave angioplasty of the proximal two lesions, Procedure: left femoral-popliteal artery shockwave angioplasty, ultrasound guided access to right common femoral artery Anesthesia: other (moderate [id number]) Surgeon: SERAFIN DWYER Estimated blood loss: minimal Pathology: none Condition: stable Disposition: same day - Disposition Condition at discharge: Good Disposition: DC-01 TO HOME OR SELFCARE Short Stay Discharge Plan Activity: advance as tolerated Weight Bearing Status: Full Weight Bearing Diet: renal Wound: keep clean and dry Special Instructions: no heavy lifting Follow up with: RENATE BUSH MD [Primary Care Provider] - 7 Days SERAFIN DWYER MD [Staff Physician] - 14 Days
[2019-04-15] MEDS ORDERED: NORCO 5/325 PO ONE (18:00)
--- NOTE | 2019-04-15 18:50 | Operative Report ---
Operative Report Operative Report: Date of procedure: 04/15/2019 Pre-operative diagnosis: Vascular disease with disabling claudication, end-stage renal disease Post-operative diagnosis: Same Procedure name(s): Percutaneous shock wave balloon angioplasty of the left femoral-popliteal artery, ultrasound-guided cannulation right common femoral artery Surgeon: Travis Silverman MD Electronics Engineer: None Anesthesia: Sedation [id number] total sedation time 112 minutes EBL: Minimal Specimen(s): None Complications: None Findings: Tandem preocclusive lesions in the left distal common femoral and proximal superficial femoral artery and in the distal superficial femoral artery with complete occlusion of the proximal popliteal artery above the knee and reconstitution via collaterals. Successful ablation of the proximal 2 lesions with improve collateral flow across the distal popliteal occlusion Procedure: Patient in the supine position after adequate levels of moderate sedation was obtained patient's right groin was prepped and draped using standard sterile technique. Ultrasound guidance was used to identify the common femoral artery which had previously been operated on and treated with endarterectomy and bovine pericardial patch angioplasty. Through anesthetized skin using real-time imaging vessel was cannulated and a microwire and sheath were advanced retrograde. Patient was moderately heparinized. Dense scar tissue was encountered in the groin from previous surgery stiff wire was used with multiple sequential dilatations until ultimately I was able to get a 6 [place] introducer in the groin. Lateral leg was accessed using a Regan wire and rim catheter and contrast was used to delineate the above-mentioned findings. I was able to manipulate a Regan wire across the proximal lesion and all the way to the popliteal artery. An 014 wire was manipulated through several high-grade stenotic lesions but would not completely past the more distal popliteal artery occlusion. We then advanced a shockwave angioplasty balloon away to the abductor canal and then proceeded to treat the highly calcified distant stenotic lesions in the distal superficial femoral shockwave angioplasty. The more proximal calcified lesions were also treated using standard approach and repeat contrast showed dramatic improvement in blood flow throughout all treated areas. I did not reattempt cross the popliteal artery occlusion but rather relied on significantly improved inflow to collateralize the calf vessels. Each of the areas was also treated with a 7 x 4 balloon as appropriate final contrast picture surgeon Isidoro improvement in the diameter of the blood vessel with excellent flow to collateralize segments. I then backed the sheath out and planned on inserting an Angio-Seal however the Angio- Seal device vent as I was inserting it due to the dense scar tissue and I became concerned that it was damaged and would not accurately deploy therefore I removed it we held counterpressure for hemostasis with good results.
[2019-04-15 19:35] VITALS: BP 94/48
== END 2019-04-15 19:59 | disposition home or self-care (01) ==
LOC: CATHLABREC 11:37
PROVIDERS: ATTEND Surgery Vascular Surgery
DX: I70.212 Atherosclerosis of native arteries of extremities with intermittent claudication, left leg (principal); I13.2 Hypertensive heart and chronic kidney disease with heart failure and with stage 5 chronic kidney disease, or end stage renal disease; E11.22 Type 2 diabetes mellitus with diabetic chronic kidney disease; I50.9 Heart failure, unspecified; N18.6 End stage renal disease; I25.10 Atherosclerotic heart disease of native coronary artery without angina pectoris; E78.00 Pure hypercholesterolemia, unspecified; E11.51 Type 2 diabetes mellitus with diabetic peripheral angiopathy without gangrene; I48.91 Unspecified atrial fibrillation; G47.30 Sleep apnea, unspecified; T82.510A Breakdown (mechanical) of surgically created arteriovenous fistula, initial encounter; Z95.1 Presence of aortocoronary bypass graft; Z85.89 Personal history of malignant neoplasm of other organs and systems; Z99.2 Dependence on renal dialysis; Z98.890 Other specified postprocedural states; Z79.899 Other long term (current) drug therapy; Z87.891 Personal history of nicotine dependence; Z83.3 Family history of diabetes mellitus; Z86.2 Personal history of diseases of the blood and blood-forming organs and certain disorders involving the immune mechanism; Z82.49 Family history of ischemic heart disease and other diseases of the circulatory system
CPT/HCPCS: 36415; 37224; 75625; 75710; 76937; 80048; 85025; 85610; 85730; 99156; 99157; C1725; C1769; C1887; C1894; J0690; J1200; J1644; J2250; J3010; J7030; J7040; Q9967